=== PATIENT | female | born 1975 | race African-American/Black ===

== ENCOUNTER 2018-10-08 09:17 | Emergency (ER) | payer MEDICARE ==
[~2018-10-08] VITALS: Ht 162.6 cm; Wt 84.8 kg
[2018-10-08 09:30] VITALS: BP 139/76
[2018-10-08] MEDS ORDERED: DIPHTH,PERTUSS(ACELL),TET TOX 0.5 ML DISP.SYRIN. VAX IM ONE (10:00)
[2018-10-08] MEDS ORDERED: IBUPROFEN 600 MG TABLET. PO ONE (10:00)
[2018-10-08] MEDS ORDERED: LIDOCAINE 1% PF 30 ML VIAL. INJ ONE (10:00)
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
[2018-10-08] MEDS ORDERED: AMOX500T PO (11:20)
== END 2018-10-08 11:29 | disposition home or self-care (01) ==
LOC: EEVIPCON 09:17 → ER 09:17
DX: S60.222A Contusion of left hand, initial encounter (principal); S01.511A Laceration without foreign body of lip, initial encounter; Z88.2 Allergy status to sulfonamides; Z88.1 Allergy status to other antibiotic agents; Z91.040 Latex allergy status; Y04.0XXA Assault by unarmed brawl or fight, initial encounter; Y93.89 Activity, other specified; Y92.89 Other specified places as the place of occurrence of the external cause; Y99.8 Other external cause status
CPT/HCPCS: 40650; 73130; 90471; 90715; 99284-25